=== PATIENT | male | born 1995 | race Caucasian/White ===

== ENCOUNTER 2018-01-23 11:34 | Emergency (ER) | payer MEDICAID ==
[~2018-01-23] VITALS: Ht 167.6 cm; Wt 69.4 kg
[2018-01-23 11:58] VITALS: Ht 167.6 cm; Wt 69.4 kg
[2018-01-23 13:12] VITALS: BP 104/66
== END 2018-01-23 14:01 | disposition home or self-care (01) ==
LOC: ED 11:34
DX: R10.13 Epigastric pain (principal); R07.89 Other chest pain
CPT/HCPCS: J1885; Q0092

== ENCOUNTER 2018-12-09 17:24 | Emergency (ER) | payer OTHER ==
[~2018-12-09] VITALS: Ht 162.6 cm; Wt 74.8 kg
[2018-12-09 17:36] VITALS: BP 129/80; Ht 162.6 cm; Wt 74.8 kg
== END 2018-12-09 18:30 | disposition home or self-care (01) ==
LOC: ED 17:24
DX: S93.492A Sprain of other ligament of left ankle, initial encounter (principal); W20.8XXA Other cause of strike by thrown, projected or falling object, initial encounter; Y93.89 Activity, other specified; Y92.89 Other specified places as the place of occurrence of the external cause; Y99.8 Other external cause status
CPT/HCPCS: J1885

== ENCOUNTER 2019-09-12 13:21 | Emergency (ER) | payer MEDICAID, SELFPAY ==
[~2019-09-12] VITALS: Ht 162.6 cm; Wt 72.6 kg
[2019-09-12 13:22] VITALS: BP 135/85; Ht 162.6 cm; Wt 72.6 kg
== END 2019-09-12 14:22 | disposition home or self-care (01) ==
LOC: ED 13:21
DX: R51 Headache (principal); J02.9 Acute pharyngitis, unspecified; Z20.828 Contact with and (suspected) exposure to other viral communicable diseases
CPT/HCPCS: U0003-CS